=== PATIENT | male | born 2000 | race African-American/Black ===

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

== ENCOUNTER 2023-11-27 21:51 | Emergency (ER) | payer SELFPAY | END 2023-11-27 22:52 | disposition home or self-care (01) | LOC: MADERS 21:51 | DX: H61.21 Impacted cerumen, right ear (principal); F17.210 Nicotine dependence, cigarettes, uncomplicated | CPT/HCPCS: 99282 ==

== ENCOUNTER 2023-12-13 07:38 | Emergency (ER) | payer SELFPAY ==
[2023-12-13 08:32] LABS: Bilirubin Negative (Negative); Blood, Urine Negative (Negative); Glucose, Urine (Dipstick) Negative (Negative); Ketone, Urine Negative (Negative); Leukocyte Negative (Negative); Nitrite Negative (Negative); Protein, Urine (Dipstick) 30 mg/dL (Neg-Trace); pH, Urine 6.5 (5.0-9.0)
[2023-12-13 08:36] LABS: CAUTI Indications for Culture Dysuria,urgency,freq; Clarity Hazy (Clear); RBC/HPF 0-3 HPF (0-3); Specific Gravity, Urine 1.029 (1.002-1.036); Squamous Epithelial 0-3 HPF (0-3); WBC/HPF 0-3 HPF (0-3)
[2023-12-13 08:37] LABS: Bacteria/HPF 1+ HPF (None Seen)
[2023-12-13 08:38] LABS: Sperm/HPF Rare HPF (None Seen)
[2023-12-13 08:39] LABS: Urine Culture Reflex No No
[2023-12-14 14:02] LABS: Chlam.trachomatis by PCR,Urine Not Detected (NotDetected); GC N.gonorrhoeae PCR,UrineVOID Not Detected (NotDetected)
== END 2023-12-13 08:17 | disposition home or self-care (01) ==
LOC: MADERS 07:38
DX: Z20.2 Contact with and (suspected) exposure to infections with a predominantly sexual mode of transmission (principal); F17.210 Nicotine dependence, cigarettes, uncomplicated
CPT/HCPCS: 81001; 87491; 87591; 99283

== ENCOUNTER 2024-07-20 07:28 | Emergency (ER) | payer SELFPAY ==
[2024-07-20] MEDS ORDERED: Ipratropium/Albuterol 3 ML NEB ONE (07:33)
[2024-07-20] MEDS ORDERED: Dexamethasone 10 MG/ML VIAL ONE (07:40)
== END 2024-07-20 08:23 | disposition home or self-care (01) ==
LOC: MADERS 07:28
DX: J45.901 Unspecified asthma with (acute) exacerbation (principal); F17.210 Nicotine dependence, cigarettes, uncomplicated; Z55.6 Problems related to health literacy
CPT/HCPCS: J1100; J7620

== ENCOUNTER 2025-04-27 23:44 | Emergency (ER) | payer SELFPAY ==
[2025-04-27] MEDS ORDERED: Dexamethasone 10 MG/ML VIAL ONE (23:58)
[2025-04-28] MEDS ORDERED: Albuterol 200 PUFF (6.7GM INHALER) ONE (00:51)
== END 2025-04-28 01:03 | disposition home or self-care (01) ==
LOC: MADERS 23:44
DX: J45.901 Unspecified asthma with (acute) exacerbation (principal); F17.210 Nicotine dependence, cigarettes, uncomplicated
CPT/HCPCS: J1100